=== PATIENT | female | born 1975 | race Caucasian/White ===

== ENCOUNTER 2021-08-09 07:56 | Outpatient (CLI) | payer OTHER | END 2021-08-09 07:59 | disposition home or self-care (01) | LOC: SONOGRAMA 07:56 | PROVIDERS: ATTEND Pathology Anatomic Pathology & Clinical Pathology | DX: E07.89 Other specified disorders of thyroid (principal); E04.1 Nontoxic single thyroid nodule ==

== ENCOUNTER 2021-08-24 09:41 | Inpatient (IN) | payer OTHER ==
[~2021-08-24] VITALS: Ht 167.6 cm; Wt 49.0 kg
[2021-08-24] MEDS ORDERED: B12 ACTIVE1000 MCG SL (09:48)
[2021-08-30] MEDS ORDERED: INTEGRA PLUS C1 EACH PO (14:24)
[2021-08-30] MEDS ORDERED: FOLIC ACID1 MG PO (14:25)
== END 2021-08-30 19:07 | disposition home or self-care (01) | DRG 812 ==
LOC: ER 09:41 → MEDI 12:52
PROVIDERS: ADMIT Internal Medicine; ATTEND Internal Medicine
PROC: 30233N1 Transfusion of Nonautologous Red Blood Cells into Peripheral Vein, Percutaneous Approach (ICD-10-PCS; principal; 2021-08-24)
PROC: BW21YZZ Computerized Tomography (CT Scan) of Abdomen and Pelvis using Other Contrast (ICD-10-PCS; 2021-08-24)
PROC: CB2YYZZ Tomographic (Tomo) Nuclear Medicine Imaging of Respiratory System using Other Radionuclide (ICD-10-PCS; 2021-08-25)
DX: D64.9 Anemia, unspecified (principal); D61.818 Other pancytopenia; R16.1 Splenomegaly, not elsewhere classified

== ENCOUNTER 2021-10-13 15:05 | Outpatient (CLI) | payer OTHER ==
[~2021-10-13 15:05] MED LIST: B12 ACTIVE1000 MCG SL; FOLIC ACID1 MG PO; INTEGRA PLUS C1 EACH PO
== END 2021-10-13 15:18 | disposition home or self-care (01) ==
LOC: LAB 15:05
PROVIDERS: ATTEND Internal Medicine Hematology & Oncology
DX: D50.8 Other iron deficiency anemias (principal); R79.89 Other specified abnormal findings of blood chemistry; I10 Essential (primary) hypertension; R74.02 Elevation of levels of lactic acid dehydrogenase [LDH]; K76.89 Other specified diseases of liver; D51.8 Other vitamin B12 deficiency anemias; B27.89 Other infectious mononucleosis with other complication; C56.9 Malignant neoplasm of unspecified ovary; R97.8 Other abnormal tumor markers; R97.1 Elevated cancer antigen 125 [CA 125]; R97.0 Elevated carcinoembryonic antigen [CEA]; Z80.42 Family history of malignant neoplasm of prostate; Z80.3 Family history of malignant neoplasm of breast; D69.59 Other secondary thrombocytopenia; D69.3 Immune thrombocytopenic purpura; G43.009 Migraine without aura, not intractable, without status migrainosus; D51.1 Vitamin B12 deficiency anemia due to selective vitamin B12 malabsorption with proteinuria; K31.83 Achlorhydria; D64.89 Other specified anemias; E03.8 Other specified hypothyroidism; D24.1 Benign neoplasm of right breast; D24.2 Benign neoplasm of left breast

== ENCOUNTER 2021-10-26 08:01 | Outpatient (CLI) | payer OTHER | END 2021-10-26 08:20 | disposition home or self-care (01) | LOC: TOM 08:01 | PROVIDERS: ATTEND Internal Medicine Hematology & Oncology | DX: Z80.42 Family history of malignant neoplasm of prostate (principal); Z80.3 Family history of malignant neoplasm of breast; D69.59 Other secondary thrombocytopenia; D69.3 Immune thrombocytopenic purpura; G43.009 Migraine without aura, not intractable, without status migrainosus; D51.1 Vitamin B12 deficiency anemia due to selective vitamin B12 malabsorption with proteinuria; K31.83 Achlorhydria; D64.9 Anemia, unspecified; E03.8 Other specified hypothyroidism; D24.1 Benign neoplasm of right breast; D24.2 Benign neoplasm of left breast; R16.1 Splenomegaly, not elsewhere classified ==

== ENCOUNTER 2022-01-26 08:28 | Outpatient (CLI) | payer OTHER ==
[2022-01-26] MEDS ORDERED: FUSION CAPSULE1 EACH (13:53)
== END 2022-01-26 08:32 | disposition home or self-care (01) ==
LOC: SONOGRAMA 08:28
PROVIDERS: ATTEND Pathology Anatomic Pathology & Clinical Pathology
DX: E04.1 Nontoxic single thyroid nodule (principal)

== ENCOUNTER 2022-01-26 10:00 | Outpatient (CLI) | payer OTHER ==
[2022-01-26] MEDS ORDERED: FUSION CAPSULE1 EACH (13:53)
== END 2022-01-26 10:05 | disposition home or self-care (01) ==
LOC: LAB 10:00
PROVIDERS: ATTEND Internal Medicine Hematology & Oncology
DX: D50.8 Other iron deficiency anemias (principal)

== ENCOUNTER 2022-01-26 13:27 | Inpatient (IN) | payer OTHER ==
[~2022-01-26] VITALS: Ht 167.6 cm; Wt 49.9 kg
[2022-01-26] MEDS ORDERED: FUSION CAPSULE1 EACH (13:53)
[2022-01-30] MEDS ORDERED: FUSION PLUS CA1 EACH PO (17:04)
[2022-01-30] MEDS ORDERED: PYRIDOXINE HCL100 MG PO (17:04)
[2022-01-30] MEDS ORDERED: FOLIC ACID1 MG PO (17:04)
[2022-01-30] MEDS ORDERED: Neurin-Sl Tablet Sl SL (17:04)
== END 2022-01-30 17:27 | disposition home or self-care (01) | DRG 812 ==
LOC: ER 13:27 → MEDI 22:52
PROVIDERS: ADMIT Internal Medicine; ATTEND Internal Medicine
PROC: 3E0F7SF Introduction of Other Gas into Respiratory Tract, Via Natural or Artificial Opening (ICD-10-PCS; 2022-01-26)
PROC: 30233N1 Transfusion of Nonautologous Red Blood Cells into Peripheral Vein, Percutaneous Approach (ICD-10-PCS; principal; 2022-01-27)
DX: D50.0 Iron deficiency anemia secondary to blood loss (chronic) (principal); C91.10 Chronic lymphocytic leukemia of B-cell type not having achieved remission; D51.0 Vitamin B12 deficiency anemia due to intrinsic factor deficiency; R16.2 Hepatomegaly with splenomegaly, not elsewhere classified; N93.8 Other specified abnormal uterine and vaginal bleeding; Z20.822 Contact with and (suspected) exposure to COVID-19

== ENCOUNTER 2022-02-01 10:00 | Emergency (ER) | payer OTHER ==
[~2022-02-01] VITALS: Ht 167.6 cm; Wt 49.9 kg
[~2022-02-01 10:00] MED LIST changes: +FUSION CAPSULE1 EACH; +FUSION PLUS CA1 EACH PO; +Neurin-Sl Tablet Sl SL; +PYRIDOXINE HCL100 MG PO
== END 2022-02-01 13:56 | disposition home or self-care (01) ==
LOC: ER 10:00
DX: R10.84 Generalized abdominal pain (principal); R16.2 Hepatomegaly with splenomegaly, not elsewhere classified

== ENCOUNTER 2022-04-03 06:38 | Outpatient (CLI) | payer OTHER | END 2022-04-03 07:06 | disposition home or self-care (01) | LOC: LAB 06:38 | PROVIDERS: ATTEND Internal Medicine Hematology & Oncology | DX: D50.8 Other iron deficiency anemias (principal); R79.9 Abnormal finding of blood chemistry, unspecified; I10 Essential (primary) hypertension; R74.02 Elevation of levels of lactic acid dehydrogenase [LDH]; K76.89 Other specified diseases of liver; Z80.42 Family history of malignant neoplasm of prostate; Z80.3 Family history of malignant neoplasm of breast; C85.17 Unspecified B-cell lymphoma, spleen; D69.59 Other secondary thrombocytopenia; D69.3 Immune thrombocytopenic purpura; G43.009 Migraine without aura, not intractable, without status migrainosus; D51.1 Vitamin B12 deficiency anemia due to selective vitamin B12 malabsorption with proteinuria; K31.83 Achlorhydria; D64.9 Anemia, unspecified; E03.8 Other specified hypothyroidism; D24.1 Benign neoplasm of right breast; D24.2 Benign neoplasm of left breast ==

== ENCOUNTER 2022-05-01 07:12 | Outpatient (CLI) | payer OTHER | END 2022-05-01 07:30 | disposition home or self-care (01) | LOC: LAB 07:12 | PROVIDERS: ATTEND Obstetrics & Gynecology | DX: E03.9 Hypothyroidism, unspecified (principal); I10 Essential (primary) hypertension; E78.00 Pure hypercholesterolemia, unspecified; N39.0 Urinary tract infection, site not specified; E55.9 Vitamin D deficiency, unspecified; R79.9 Abnormal finding of blood chemistry, unspecified; R79.89 Other specified abnormal findings of blood chemistry; Z00.00 Encounter for general adult medical examination without abnormal findings; Z11.4 Encounter for screening for human immunodeficiency virus [HIV]; Z12.11 Encounter for screening for malignant neoplasm of colon; Z21 Asymptomatic human immunodeficiency virus [HIV] infection status ==

== ENCOUNTER 2022-05-07 12:32 | Inpatient (IN) | payer OTHER ==
[~2022-05-07] VITALS: Ht 152.4 cm; Wt 49.9 kg
== END 2022-05-09 13:21 | disposition home or self-care (01) | DRG 812 ==
LOC: ER 12:32 → MEDJ 19:16
PROVIDERS: ADMIT Internal Medicine; ATTEND Internal Medicine
PROC: 30233N1 Transfusion of Nonautologous Red Blood Cells into Peripheral Vein, Percutaneous Approach (ICD-10-PCS; principal; 2022-05-08)
DX: D64.9 Anemia, unspecified (principal); D50.0 Iron deficiency anemia secondary to blood loss (chronic); R16.1 Splenomegaly, not elsewhere classified; Z20.822 Contact with and (suspected) exposure to COVID-19; D51.0 Vitamin B12 deficiency anemia due to intrinsic factor deficiency

== ENCOUNTER 2022-05-17 07:15 | Inpatient (IN) | payer OTHER ==
[~2022-05-17] VITALS: Ht 167.6 cm; Wt 49.9 kg
[2022-05-24] MEDS ORDERED: GABAPENTIN300 MG PO (07:06)
[2022-05-24] MEDS ORDERED: OXYC1TAB9 PO (07:07)
[2022-05-25] MEDS ORDERED: SIMETHICONE125 M1 PO (07:24)
[2022-05-25] MEDS ORDERED: TRAMADOL HCL50 MG PO (07:24)
[2022-05-25] MEDS ORDERED: NEURONTIN600 MG PO (07:24)
[2022-05-25] MEDS ORDERED: POLY119PG PO (07:24)
== END 2022-05-25 10:12 | disposition home or self-care (01) | DRG 743 ==
LOC: OB/GYN 05-22 04:45 → O/R 05-22 04:45 → SURG 05-22 07:00 → OB/GYN 05-22 10:11
PROVIDERS: ADMIT Obstetrics & Gynecology; ATTEND Obstetrics & Gynecology
PROC: 0UT70ZZ Resection of Bilateral Fallopian Tubes, Open Approach (ICD-10-PCS; 2022-05-22)
PROC: 0UT90ZZ Resection of Uterus, Open Approach (ICD-10-PCS; principal; 2022-05-22 07:00)
DX: D25.9 Leiomyoma of uterus, unspecified (principal); N72 Inflammatory disease of cervix uteri; N80.0 Endometriosis of uterus; Z20.822 Contact with and (suspected) exposure to COVID-19

== ENCOUNTER 2022-06-12 08:25 | Inpatient (IN) | payer OTHER ==
[~2022-06-12] VITALS: Ht 167.6 cm; Wt 46.3 kg
[~2022-06-12 08:25] MED LIST changes: +GABAPENTIN300 MG PO; +NEURONTIN600 MG PO; +OXYC1TAB9 PO; +POLY119PG PO; +SIMETHICONE125 M1 PO; +TRAMADOL HCL50 MG PO
[2022-06-12] MEDS ORDERED: FUSION PLUS CA1 EACH PO ×2 (08:40→08:43)
[2022-06-12] MEDS ORDERED: HEALTHY HEART1 EACH PO (08:41)
--- NOTE | 2022-06-12 08:44 | NUR ---
SE RECIBE PACIENTE ALERTA Y ORIENTADO X3 PTE REFIERE QUE TIENE [facility] Y PADECE DE ANEMIA Y LE QUITARON LA MATRIZ. SE DAYSI EN LA JÚNIOR DE ESPERA POR EVALUACION MEDICA.
--- NOTE | 2022-06-12 09:26 | NUR ---
FEMINA DE [address] CABRERA SE EJECUTA ORDEN EN ADAMS TOTALIDA SE DAYSI EN JÚNIOR EN ESPERA DE RESULTADO. Y SE EDEUCA A PACIENTE Y PACIENTE REFIERE ENTENDER.
--- NOTE | 2022-06-12 10:54 | NUR ---
SE LLAMA A BANCO DE SID DEL [facility] PARA REQUISAR UNIDADES DE SID Y VERIFICA SI PTE TIENE REORD PREVIO. REFIERE QUE PTE YA TIENE RECORD.SE LE ORIENTA A PTE SOBRE TRATAMIENTO A SEGUIR, KENDRICK REFIERE ENTENDER. SE COLECTA MUESTRAS Y SE CANALIZA X2 HERNESTO ORDEN MEDICA. LLAMA A DR.MUNOZ CARPENTER Y EL ORDENA TRANSFUNDIR 4 UNIDADES DE PRBC COMPLETAS. SE EJECUTA ORDEN. SE ENVIA TUBOS PILOTOS A BANCO DE SID.
--- NOTE | 2022-06-12 17:04 | NUR ---
SE RECIBE PTE FEMENINA ALERTA Y ORIENTADA X3,SE COMIENZA PRIMERA UNIDAD DE PRBC,LA CUAL PTE TOLERA Y NO PRESENTA REACCION ADVERSA,SE MANTIENE EN VIGILANCIA CROW POR CAMBIOS.
== END 2022-06-15 21:03 | disposition home or self-care (01) | DRG 812 ==
LOC: ER 08:25 → MEDI 18:46
PROVIDERS: ADMIT Internal Medicine; ATTEND Internal Medicine
PROC: 30233N1 Transfusion of Nonautologous Red Blood Cells into Peripheral Vein, Percutaneous Approach (ICD-10-PCS; principal; 2022-06-13)
DX: D64.9 Anemia, unspecified (principal); C91.10 Chronic lymphocytic leukemia of B-cell type not having achieved remission; N93.9 Abnormal uterine and vaginal bleeding, unspecified; D51.0 Vitamin B12 deficiency anemia due to intrinsic factor deficiency; Z20.822 Contact with and (suspected) exposure to COVID-19

== ENCOUNTER 2022-06-26 11:07 | Outpatient (CLI) | payer OTHER ==
[~2022-06-26 11:07] MED LIST changes: +HEALTHY HEART1 EACH PO
== END 2022-06-26 11:13 | disposition home or self-care (01) ==
LOC: LAB 11:07
PROVIDERS: ATTEND Obstetrics & Gynecology
DX: D64.9 Anemia, unspecified (principal)

== ENCOUNTER 2022-08-12 07:17 | Outpatient (CLI) | payer OTHER | END 2022-08-12 07:18 | disposition home or self-care (01) | LOC: LAB 07:17 | PROVIDERS: ATTEND Internal Medicine | DX: R16.2 Hepatomegaly with splenomegaly, not elsewhere classified (principal) ==

== ENCOUNTER 2022-09-04 08:29 | Inpatient (IN) | payer OTHER ==
[~2022-09-04] VITALS: Ht 167.6 cm; Wt 47.6 kg
--- NOTE | 2022-09-04 08:45 | NUR ---
PACIENTE ALERTA Y ORIENTADA X3, REFIERE QUE SE REALIZO LABORATORIOS A FINALES DE NOVIEMBRE DONDE INDICABA QUE TENIA 8 DE HEMOGLOBINA. PTE SE ENCUENTRA TOMANDO TERRY. PTE INDICA TENER DOLOR DE JENNIFER Y SENTIR QUE LE ESTA BAJANDO LA HEMOGLOBINA. SE MONITOREAN VS Y SE UBICA EN JÚNIOR DE ESPERA
--- NOTE | 2022-09-04 10:26 | NUR ---
FEMINA ALERTA Y ORIENTADA X3 EVALUADA POR DRA HEADLEY QUIEN ORDENA [place] MEDICO. SE EDUCA A PTE Y SE COLECTAN MUESTRAS DE SID BAJO MEDIDAS ASEPTICAS.
[2022-09-05] MEDS ORDERED: ABANEU-SL TABL1 EACH (08:46)
[2022-09-07] MEDS ORDERED: FOLIC ACID1 MG PO (12:19)
[2022-09-07] MEDS ORDERED: INTEGRA PLUS C1 EACH PO (12:19)
[2022-09-07] MEDS ORDERED: B12 ACTIVE1000 MCG SL (12:20)
[2022-09-07] MEDS ORDERED: PYRIDOXINE HCL100 MG PO (12:20)
== END 2022-09-07 15:14 | disposition home or self-care (01) | DRG 812 ==
LOC: ER 08:29 → MEDJ 15:12 → SEC-K 15:12 → MEDJ 15:37
PROVIDERS: ADMIT Internal Medicine; ATTEND Internal Medicine
DX: D64.9 Anemia, unspecified (principal); C91.10 Chronic lymphocytic leukemia of B-cell type not having achieved remission; R16.0 Hepatomegaly, not elsewhere classified; D63.0 Anemia in neoplastic disease; E03.9 Hypothyroidism, unspecified; Z20.822 Contact with and (suspected) exposure to COVID-19

== ENCOUNTER 2022-11-19 13:17 | Inpatient (IN) | payer OTHER ==
[~2022-11-19] VITALS: Ht 167.6 cm; Wt 48.5 kg
[~2022-11-19 13:17] MED LIST changes: +ABANEU-SL TABL1 EACH
--- NOTE | 2022-11-19 13:47 | NUR ---
SE RECIBE PACIENTE ALERTA Y ORIENTADA X3 QUIEN VERBALIZA QUE TIENE HGB BAJA. PACIENTE NO PRESENTA LABORATORIO AL MOMENTO. SE MONITOREAN S/V Y SE UBICA PACIENTE.
[2022-11-19] MEDS ORDERED: FOLIC ACID1 MG PO (13:50)
--- NOTE | 2022-11-19 17:48 | NUR ---
PTE ES EVALUADO POR DR CABRERA. SE ORIENTA A PTE Y VERBALIZA QUE ACCEPTA. PTE SE CANALIZA EN BRAZOO ARUNA Y TIENE 2 VENOPUNCION CON ANGIO 20 YA QUE PTE VIENE PARA TRANSFUCION. SE UBICA EN CAMA 11. SE EJECUTA ORDEN MEDICA EN ADAMS TOTALIDAD
== END 2022-12-18 14:57 | disposition home or self-care (01) | DRG 841 ==
LOC: ER 13:17 → MEDI 19:40 → MEDJ 19:40
PROVIDERS: ADMIT Internal Medicine; ATTEND Internal Medicine
PROC: 30233N1 Transfusion of Nonautologous Red Blood Cells into Peripheral Vein, Percutaneous Approach (ICD-10-PCS; 2022-11-20)
PROC: BW40ZZZ Ultrasonography of Abdomen (ICD-10-PCS; 2022-11-23)
PROC: BW21YZZ Computerized Tomography (CT Scan) of Abdomen and Pelvis using Other Contrast (ICD-10-PCS; 2022-11-24)
PROC: 02HV33Z Insertion of Infusion Device into Superior Vena Cava, Percutaneous Approach (ICD-10-PCS; 2022-12-06)
PROC: BB24Y0Z Computerized Tomography (CT Scan) of Bilateral Lungs using Other Contrast, Unenhanced and Enhanced (ICD-10-PCS; 2022-12-07)
PROC: 0W9B30Z Drainage of Left Pleural Cavity with Drainage Device, Percutaneous Approach (ICD-10-PCS; principal; 2022-12-11)
DX: C91.10 Chronic lymphocytic leukemia of B-cell type not having achieved remission (principal); D61.818 Other pancytopenia; J90 Pleural effusion, not elsewhere classified; D63.0 Anemia in neoplastic disease; D51.0 Vitamin B12 deficiency anemia due to intrinsic factor deficiency; D73.2 Chronic congestive splenomegaly; R16.0 Hepatomegaly, not elsewhere classified; D53.0 Protein deficiency anemia; R14.0 Abdominal distension (gaseous); G89.3 Neoplasm related pain (acute) (chronic)

== ENCOUNTER 2023-01-27 07:31 | Outpatient (CLI) | payer OTHER | END 2023-01-27 07:32 | disposition home or self-care (01) | LOC: LAB 07:31 | PROVIDERS: ATTEND Internal Medicine | DX: R16.2 Hepatomegaly with splenomegaly, not elsewhere classified (principal); D64.9 Anemia, unspecified; R18.8 Other ascites; D69.6 Thrombocytopenia, unspecified; E11.9 Type 2 diabetes mellitus without complications; E03.9 Hypothyroidism, unspecified; E78.2 Mixed hyperlipidemia; N39.0 Urinary tract infection, site not specified; E55.9 Vitamin D deficiency, unspecified; E03.8 Other specified hypothyroidism; Z90.710 Acquired absence of both cervix and uterus ==

== ENCOUNTER → 2023-04-28 07:08 | Outpatient (CLI) | payer OTHER | END | disposition home or self-care (01) | LOC: LAB 07:08 | PROVIDERS: ATTEND Internal Medicine Hematology & Oncology | DX: D50.8 Other iron deficiency anemias (principal); R79.9 Abnormal finding of blood chemistry, unspecified; I10 Essential (primary) hypertension; R74.02 Elevation of levels of lactic acid dehydrogenase [LDH]; K76.89 Other specified diseases of liver; Z80.42 Family history of malignant neoplasm of prostate; Z80.3 Family history of malignant neoplasm of breast; C85.17 Unspecified B-cell lymphoma, spleen; D69.59 Other secondary thrombocytopenia; D69.3 Immune thrombocytopenic purpura; G43.009 Migraine without aura, not intractable, without status migrainosus; D51.1 Vitamin B12 deficiency anemia due to selective vitamin B12 malabsorption with proteinuria; K31.83 Achlorhydria; D64.9 Anemia, unspecified; E03.8 Other specified hypothyroidism; D24.1 Benign neoplasm of right breast; D24.2 Benign neoplasm of left breast ==

== ENCOUNTER 2023-05-30 07:26 | Outpatient (CLI) | payer OTHER | END 2023-05-30 07:37 | disposition home or self-care (01) | LOC: TOM 07:26 | PROVIDERS: ATTEND Internal Medicine Hematology & Oncology | DX: D73.2 Chronic congestive splenomegaly (principal); Z80.42 Family history of malignant neoplasm of prostate; Z80.3 Family history of malignant neoplasm of breast; D69.59 Other secondary thrombocytopenia; D69.3 Immune thrombocytopenic purpura; G43.009 Migraine without aura, not intractable, without status migrainosus; D51.1 Vitamin B12 deficiency anemia due to selective vitamin B12 malabsorption with proteinuria; K31.83 Achlorhydria; D64.9 Anemia, unspecified; E03.8 Other specified hypothyroidism; D24.1 Benign neoplasm of right breast; D24.2 Benign neoplasm of left breast; C85.17 Unspecified B-cell lymphoma, spleen ==

== ENCOUNTER → 2023-07-28 09:24 | Outpatient (CLI) | payer OTHER ==
[2023-07-28 10:05] LABS: HEMATOCRIT 28.1 % (36.0-45.00); MEAN CELL VOLUME 92.5 fL (80.00-100.00); MEAN CORPUSCULAR HGB CONC 34.4 g/dl (32.0-36.0); RED BLOOD COUNT 3.04 M/uL (4.00-6.00); RED CELL DISTRIBUTION WIDTH 14.1 % (11.5-14.5)
[2023-07-28 10:06] LABS: MEAN CORPUSCULAR HEMOGLOBIN 31.9 pg (27.00-32.0)
[2023-07-28 10:07] LABS: HEMOGLOBIN 9.7 g/dL (12.0-15.00); PLATELET COUNT 114 K/uL (150-450)
== END | disposition home or self-care (01) ==
LOC: LAB 09:24
DX: Z00.00 Encounter for general adult medical examination without abnormal findings (principal)

== ENCOUNTER 2023-08-04 07:48 | Inpatient (IN) | payer OTHER ==
[~2023-08-04] VITALS: Ht 167.6 cm; Wt 53.1 kg
[2023-08-04] MEDS ORDERED: FOLIC ACID0.8 M1 (07:54)
[2023-08-04] MEDS ORDERED: LYRICA100 MG PO (07:54)
[2023-08-04] MEDS ORDERED: FUSION PLUS CA1 EACH PO (07:55)
[2023-08-04] MEDS ORDERED: SUMATRIPTAN-NA1 EACH PO (07:55)
[2023-08-04 09:36] LABS: URINE APPEARANCE Cloudy; URINE BILIRRUBIN Small (NEGATIVE); URINE BLOOD Negative; URINE COLOR Dark Yellow; URINE GLUCOSE Negative (NEGATIVE); URINE LEUKOCYTE Trace; URINE NITRATE Negative
[2023-08-04 09:39] LABS: URINE EPITHELIAL CELLS 28.1 uL (0.0-38.8); URINE RBC 21.8 uL (0.0-20.8)
[2023-08-04 09:48] LABS: URINE CRYSTALS MANY /HPF; URINE PROTEIN 100 (NEGATIVE)
[2023-08-04 11:08] LABS: INR 1.2; PARTIAL THROMBOPLASTIN TIME 24.9 SECONDS (22.0-34.0); PROTHROMBIN TIME 12.4 SECONDS (9.0-11.5)
[2023-08-04 11:13] LABS: MEAN CELL VOLUME 94.1 fL (80.00-100.00); MEAN CORPUSCULAR HGB CONC 33.6 g/dl (32.0-36.0); RED BLOOD COUNT 2.35 M/uL (4.00-6.00); RED CELL DISTRIBUTION WIDTH 14.7 % (11.5-14.5)
[2023-08-04 11:26] LABS: ALBUMIN 2.5 gm/dL (3.4-5.0); BILIRUBIN TOTAL 0.63 mg/dL (0.3-1.2); CALCIUM 9.1 mg/dL (8.5-10.1); CREATININE SERUM 0.68 mg/dL (0.55-1.02); GFR 92.35; POTASSIUM 4.59 mEq/L (3.5-5.1); TOTAL PROTEIN 6.5 gm/dL (6.4-8.2)
[2023-08-04 11:36] LABS: MEAN CORPUSCULAR HEMOGLOBIN 31.9 pg (27.00-32.0)
[2023-08-04 11:41] LABS: HEMATOCRIT 22.2 % (36.0-45.00); HEMOGLOBIN 7.5 g/dL (12.0-15.00)
[2023-08-04 12:47] LABS: PLATELET COUNT 84 K/uL (150-450)
[2023-08-05 10:30] LABS: MEAN CELL VOLUME 88.9 fL (80.00-100.00); MEAN CORPUSCULAR HGB CONC 35.7 g/dl (32.0-36.0); RED BLOOD COUNT 2.58 M/uL (4.00-6.00); RED CELL DISTRIBUTION WIDTH 14.4 % (11.5-14.5)
[2023-08-05 10:31] LABS: MEAN CORPUSCULAR HEMOGLOBIN 31.7 pg (27.00-32.0)
[2023-08-05 10:32] LABS: HEMATOCRIT 22.9 % (36.0-45.00); HEMOGLOBIN 8.2 g/dL (12.0-15.00); PLATELET COUNT 83 K/uL (150-450)
[2023-08-05 10:40] LABS: ALBUMIN 2.4 gm/dL (3.4-5.0); BILIRUBIN TOTAL 0.75 mg/dL (0.3-1.2); CALCIUM 8.4 mg/dL (8.5-10.1); CREATININE SERUM 0.62 mg/dL (0.55-1.02); GFR 102.74; GLOBULINA 3.3 G/DL (2.4-3.5); MAGNESIUM 1.8 mg/dL (1.8-2.4); PHOSPHOROUS 3.2 mg/dL (2.5-4.9); POTASSIUM 3.72 mEq/L (3.5-5.1); TOTAL PROTEIN 5.7 gm/dL (6.4-8.2)
[2023-08-05 10:57] LABS: MANUAL PLATELET COUNT 170
[2023-08-05 11:12] LABS: C-REACTIVE PROTEIN 26.1 MG/DL (0.00-0.29)
[2023-08-05 20:05] LABS: MEAN CELL VOLUME 89.8 fL (80.00-100.00); MEAN CORPUSCULAR HGB CONC 34.2 g/dl (32.0-36.0); RED BLOOD COUNT 3.03 M/uL (4.00-6.00); RED CELL DISTRIBUTION WIDTH 14.6 % (11.5-14.5)
[2023-08-05 21:01] LABS: PLATELET COUNT 87 K/uL (150-450)
[2023-08-05 21:04] LABS: HEMATOCRIT 27.2 % (36.0-45.00); HEMOGLOBIN 9.3 g/dL (12.0-15.00); MEAN CORPUSCULAR HEMOGLOBIN 30.6 pg (27.00-32.0)
[2023-08-06 12:08] LABS: HEMOGLOBIN 10.4 g/dL (12.0-15.00); MEAN CELL VOLUME 88.1 fL (80.00-100.00); MEAN CORPUSCULAR HEMOGLOBIN 29.5 pg (27.00-32.0); MEAN CORPUSCULAR HGB CONC 33.4 g/dl (32.0-36.0); RED BLOOD COUNT 3.51 M/uL (4.00-6.00)
[2023-08-06 12:17] LABS: PLATELET COUNT 71 K/uL (150-450)
[2023-08-06 13:07] LABS: PLATELET ESTIMATE DECREASED (NORMAL)
[2023-08-08 08:00] LABS: HEMATOCRIT 28.3 % (36.0-45.00); HEMOGLOBIN 9.8 g/dL (12.0-15.00); MEAN CELL VOLUME 87.8 fL (80.00-100.00); MEAN CORPUSCULAR HEMOGLOBIN 30.4 pg (27.00-32.0); MEAN CORPUSCULAR HGB CONC 34.7 g/dl (32.0-36.0); RED BLOOD COUNT 3.22 M/uL (4.00-6.00); RED CELL DISTRIBUTION WIDTH 16.2 % (11.5-14.5)
[2023-08-08 08:04] LABS: PLATELET COUNT 61 K/uL (150-450)
[2023-08-08 08:33] LABS: MYCOPLASMA PNEUMONIAE IGM NON REACTIVE (NO REACTIVE)
[2023-08-08 09:37] LABS: PLATELET ESTIMATE DECREASED (NORMAL)
[2023-08-10 06:50] LABS: HEMATOCRIT 26.6 % (36.0-45.00); MEAN CELL VOLUME 88.6 fL (80.00-100.00); MEAN CORPUSCULAR HGB CONC 33.9 g/dl (32.0-36.0)
[2023-08-10 07:03] LABS: BILIRUBIN TOTAL 0.62 mg/dL (0.3-1.2); CALCIUM 7.8 mg/dL (8.5-10.1); CREATININE SERUM 0.43 mg/dL (0.55-1.02); GFR 156.72; GLOBULINA 2.5 G/DL (2.4-3.5); POTASSIUM 3.6 mEq/L (3.5-5.1); TOTAL PROTEIN 4.5 gm/dL (6.4-8.2)
[2023-08-10 07:19] LABS: PLATELET COUNT 49 K/uL (150-450)
[2023-08-11 14:25] LABS: ALBUMIN 2.1 gm/dL (3.4-5.0); BILIRUBIN TOTAL 0.93 mg/dL (0.3-1.2); CALCIUM 8.3 mg/dL (8.5-10.1); CREATININE SERUM 0.37 mg/dL (0.55-1.02); GFR 186.4; GLOBULINA 2.9 G/DL (2.4-3.5); POTASSIUM 4.14 mEq/L (3.5-5.1)
[2023-08-12 07:34] LABS: ALBUMIN 1.9 gm/dL (3.4-5.0); BILIRUBIN TOTAL 0.51 mg/dL (0.3-1.2); CALCIUM 7.7 mg/dL (8.5-10.1); CREATININE SERUM 0.4 mg/dL (0.55-1.02); GFR 170.36; GLOBULINA 2.5 G/DL (2.4-3.5); POTASSIUM 3.72 mEq/L (3.5-5.1); TOTAL PROTEIN 4.4 gm/dL (6.4-8.2)
[2023-08-12 08:22] LABS: HEMATOCRIT 26.3 % (36.0-45.00); MEAN CELL VOLUME 88.2 fL (80.00-100.00); MEAN CORPUSCULAR HEMOGLOBIN 30.1 pg (27.00-32.0); MEAN CORPUSCULAR HGB CONC 34.2 g/dl (32.0-36.0); RED BLOOD COUNT 2.98 M/uL (4.00-6.00); RED CELL DISTRIBUTION WIDTH 16.2 % (11.5-14.5)
[2023-08-12 10:00] LABS: MANUAL PLATELET COUNT 58; PLATELET COUNT 41 K/uL (150-450)
== END 2023-08-12 13:05 | disposition home or self-care (01) | DRG 812 ==
LOC: ER 07:49 → MEDJ 15:42
PROVIDERS: Emergency Medicine; Internal Medicine Geriatric Medicine; Internal Medicine Hematology & Oncology; Internal Medicine Infectious Disease; ADMIT Internal Medicine; ATTEND Internal Medicine
PROC: BW21ZZZ Computerized Tomography (CT Scan) of Abdomen and Pelvis (ICD-10-PCS; principal; 2023-08-04)
DX: D64.9 Anemia, unspecified (principal); D61.818 Other pancytopenia; D69.6 Thrombocytopenia, unspecified; K59.00 Constipation, unspecified; R16.1 Splenomegaly, not elsewhere classified

== ENCOUNTER 2023-08-21 07:30 | Outpatient (CLI) | payer OTHER ==
[~2023-08-21 07:30] MED LIST changes: +FOLIC ACID0.8 M1; +LYRICA100 MG PO; +SUMATRIPTAN-NA1 EACH PO
[2023-08-21 09:18] LABS: HEMATOCRIT 39.3 % (36.0-45.00); HEMOGLOBIN 13.1 g/dL (12.0-15.00); MEAN CELL VOLUME 89.7 fL (80.00-100.00); MEAN CORPUSCULAR HGB CONC 33.4 g/dl (32.0-36.0); PLATELET COUNT 251 K/uL (150-450); RED BLOOD COUNT 4.38 M/uL (4.00-6.00)
[2023-08-21 09:35] LABS: INR 0.99; PROTHROMBIN TIME 10.4 SECONDS (9.0-11.5)
[2023-08-22 09:17] LABS: ALBUMIN 3.8 gm/dL (3.4-5.0); BILIRUBIN TOTAL 0.6 mg/dL (0.3-1.2); CALCIUM 9.3 mg/dL (8.5-10.1); CREATININE SERUM 0.55 mg/dL (0.55-1.02); GFR 117.97; GLOBULINA 2.9 G/DL (2.4-3.5); POTASSIUM 4.58 mEq/L (3.5-5.1); TOTAL PROTEIN 6.7 gm/dL (6.4-8.2)
== END 2023-08-21 07:31 | disposition home or self-care (01) ==
LOC: LAB 07:30
DX: R16.1 Splenomegaly, not elsewhere classified (principal)

== ENCOUNTER 2023-08-24 14:32 | Outpatient (CLI) | payer OTHER | END 2023-08-24 23:00 | disposition home or self-care (01) | LOC: EKG 14:32 | PROVIDERS: ATTEND Internal Medicine | DX: I10 Essential (primary) hypertension (principal) ==

== ENCOUNTER → 2023-10-26 06:16 | Outpatient (CLI) | payer OTHER ==
[2023-10-26 07:22] LABS: HEMOGLOBIN 15.2 g/dL (12.0-15.00); MEAN CELL VOLUME 90.2 fL (80.00-100.00); MEAN CORPUSCULAR HEMOGLOBIN 31.1 pg (27.00-32.0); MEAN CORPUSCULAR HGB CONC 34.5 g/dl (32.0-36.0); PLATELET COUNT 185 K/uL (150-450); RED BLOOD COUNT 4.88 M/uL (4.00-6.00)
[2023-10-26 09:15] LABS: % SATURACION 91.6 % (15-50); ALBUMIN 4.4 gm/dL (3.4-5.0); BILIRUBIN TOTAL 0.69 mg/dL (0.3-1.2); CALCIUM 9.5 mg/dL (8.5-10.1); CREATININE SERUM 0.76 mg/dL (0.55-1.02); GFR 81.22; GLOBULINA 3.1 G/DL (2.4-3.5); POTASSIUM 4.87 mEq/L (3.5-5.1); TOTAL PROTEIN 7.5 gm/dL (6.4-8.2)
[2023-10-26 09:17] LABS: FERRITIN 3591.2 NG/ML (8-252)
[2023-10-26 10:49] LABS: FOLIC ACID > 20.00 ng/ml (4.78-20)
[2023-10-26 11:08] LABS: MANUAL PLATELET COUNT 384
[2023-10-26 11:11] LABS: PLATELET ESTIMATE NORMAL (NORMAL)
== END | disposition home or self-care (01) ==
LOC: LAB 06:16
PROVIDERS: ATTEND Internal Medicine Hematology & Oncology
DX: D50.8 Other iron deficiency anemias (principal); C85.17 Unspecified B-cell lymphoma, spleen; Z80.3 Family history of malignant neoplasm of breast; D69.59 Other secondary thrombocytopenia; D69.3 Immune thrombocytopenic purpura; G43.009 Migraine without aura, not intractable, without status migrainosus; D51.1 Vitamin B12 deficiency anemia due to selective vitamin B12 malabsorption with proteinuria; K31.83 Achlorhydria; D64.9 Anemia, unspecified; E03.8 Other specified hypothyroidism; D24.1 Benign neoplasm of right breast; D24.2 Benign neoplasm of left breast; R79.9 Abnormal finding of blood chemistry, unspecified; I10 Essential (primary) hypertension; R74.02 Elevation of levels of lactic acid dehydrogenase [LDH]; K76.89 Other specified diseases of liver

== ENCOUNTER 2024-06-07 07:52 | Outpatient (CLI) | payer OTHER ==
[2024-06-07 09:03] LABS: HEMATOCRIT 38.6 % (36.0-45.00); HEMOGLOBIN 13.1 g/dL (12.0-15.00); MEAN CELL VOLUME 94.9 fL (80.00-100.00); MEAN CORPUSCULAR HEMOGLOBIN 32.1 pg (27.00-32.0); MEAN CORPUSCULAR HGB CONC 33.8 g/dl (32.0-36.0); PLATELET COUNT 340 K/uL (150-450); RED BLOOD COUNT 4.07 M/uL (4.00-6.00); RED CELL DISTRIBUTION WIDTH 13.4 % (11.5-14.5)
[2024-06-07 09:59] LABS: BILIRUBIN TOTAL 0.45 mg/dL (0.3-1.2); CALCIUM 9.5 mg/dL (8.5-10.1); CREATININE SERUM 0.53 mg/dL (0.55-1.02); GFR 122.61; POTASSIUM 4.14 mEq/L (3.5-5.1)
[2024-06-09 12:33] LABS: FOLIC ACID > 20.00 ng/ml (4.78-20); VITAMIN D3 25 HYDROXY 33.49 ng/ml (30-120)
[2024-06-09 12:59] LABS: MANUAL PLATELET COUNT 694; PLATELET ESTIMATE INCREASED (NORMAL)
== END 2024-06-07 08:09 | disposition home or self-care (01) ==
LOC: LAB 07:52
PROVIDERS: ATTEND Internal Medicine Hematology & Oncology
DX: D69.3 Immune thrombocytopenic purpura (principal); Z80.42 Family history of malignant neoplasm of prostate; Z80.3 Family history of malignant neoplasm of breast; C85.17 Unspecified B-cell lymphoma, spleen; D69.59 Other secondary thrombocytopenia; G43.009 Migraine without aura, not intractable, without status migrainosus; D51.1 Vitamin B12 deficiency anemia due to selective vitamin B12 malabsorption with proteinuria; K31.83 Achlorhydria; D64.9 Anemia, unspecified; E03.8 Other specified hypothyroidism; D24.1 Benign neoplasm of right breast; D24.2 Benign neoplasm of left breast; E55.9 Vitamin D deficiency, unspecified; R79.9 Abnormal finding of blood chemistry, unspecified; D50.8 Other iron deficiency anemias; R74.02 Elevation of levels of lactic acid dehydrogenase [LDH]; K76.89 Other specified diseases of liver; I10 Essential (primary) hypertension

== ENCOUNTER 2024-12-04 06:27 | Outpatient (CLI) | payer OTHER ==
[2024-12-04 08:04] LABS: HEMATOCRIT 40.1 % (36.0-45.00); HEMOGLOBIN 13.8 g/dL (12.0-15.00); MEAN CELL VOLUME 93.6 fL (80.00-100.00); MEAN CORPUSCULAR HEMOGLOBIN 32.1 pg (27.00-32.0); MEAN CORPUSCULAR HGB CONC 34.3 g/dl (32.0-36.0); PLATELET COUNT 264 K/uL (150-450); RED BLOOD COUNT 4.29 M/uL (4.00-6.00)
[2024-12-04 08:11] LABS: BILIRUBIN TOTAL 0.51 mg/dL (0.3-1.2); CALCIUM 9.3 mg/dL (8.5-10.1); CREATININE SERUM 0.63 mg/dL (0.55-1.02); GFR 100.44; POTASSIUM 4.34 mEq/L (3.5-5.1)
[2024-12-04 08:16] LABS: FERRITIN 1967.3 NG/ML (8-252)
[2024-12-04 09:29] LABS: MANUAL PLATELET COUNT 490; PLATELET ESTIMATE NORMAL (NORMAL)
[2024-12-04 12:30] LABS: FOLIC ACID > 20.00 ng/ml (4.78-20); VITAMIN D3 25 HYDROXY 38.08 ng/ml (30-120)
== END 2024-12-04 06:46 | disposition home or self-care (01) ==
LOC: LAB 06:27
PROVIDERS: ATTEND Internal Medicine Hematology & Oncology
DX: C85.17 Unspecified B-cell lymphoma, spleen (principal); D69.59 Other secondary thrombocytopenia; D69.3 Immune thrombocytopenic purpura; G43.009 Migraine without aura, not intractable, without status migrainosus; D51.1 Vitamin B12 deficiency anemia due to selective vitamin B12 malabsorption with proteinuria; K31.83 Achlorhydria; D64.9 Anemia, unspecified; E03.8 Other specified hypothyroidism; D24.1 Benign neoplasm of right breast; D24.2 Benign neoplasm of left breast; D50.8 Other iron deficiency anemias; I10 Essential (primary) hypertension; R74.02 Elevation of levels of lactic acid dehydrogenase [LDH]; K76.89 Other specified diseases of liver; R79.9 Abnormal finding of blood chemistry, unspecified; E55.9 Vitamin D deficiency, unspecified

== ENCOUNTER 2024-12-17 07:04 | Outpatient (CLI) | payer OTHER | END 2024-12-17 07:07 | disposition home or self-care (01) | LOC: TOM 07:04 | PROVIDERS: ATTEND Internal Medicine Hematology & Oncology | DX: Z80.3 Family history of malignant neoplasm of breast (principal); C85.17 Unspecified B-cell lymphoma, spleen; D69.59 Other secondary thrombocytopenia; D69.3 Immune thrombocytopenic purpura; G43.009 Migraine without aura, not intractable, without status migrainosus; D51.1 Vitamin B12 deficiency anemia due to selective vitamin B12 malabsorption with proteinuria; K31.83 Achlorhydria; D64.9 Anemia, unspecified; E03.8 Other specified hypothyroidism; D24.1 Benign neoplasm of right breast; D24.2 Benign neoplasm of left breast ==

== ENCOUNTER 2025-03-23 10:49 | Emergency (ER) | payer OTHER ==
[~2025-03-23] VITALS: Ht 167.6 cm; Wt 63.5 kg
[2025-03-23] MEDS ORDERED: MONTELUKAST SODIUM 10 MG TABLET PO ONE (12:45)
[2025-03-23] MEDS ORDERED: LEVALBUTEROL HCL 1.25 MG/3 ML SOLUTION IH ONE (12:45)
[2025-03-23] MEDS ORDERED: IPRATROPIUM BROMIDE 0.5 MG/2.5 ML AMPUL.NEB IH ONE (12:45)
[2025-03-23] MEDS ORDERED: CEFTRIAXONE SODIUM 1,000 MG VIAL IV ONE (12:45)
[2025-03-23] MEDS ORDERED: BENZONATATE 200 MG CAPSULE PO ONE (12:45)
[2025-03-23] MEDS ORDERED: FAMOtidine 10 MG/ML (4ML VIAL) IV ONE (12:45)
[2025-03-23] MEDS ORDERED: MAGNESIUM SULFATE IN WATER 2 GM/50 ML PIGGYBAG IV ONE (12:45)
[2025-03-23] MEDS ORDERED: METHYLPREDNISOLONE SOD SUCC 125 MG VIAL IV ONE (12:45)
[2025-03-23 14:46] LABS: BASO % 0.6 % (0.1-1.2); EOS # 1.61 (0.04-0.54); EOS % 9.1 % (0.7-7.0); HEMATOCRIT 43.6 % (34.1-44.9); HEMOGLOBIN 14.1 g/dL (11.2-15.7); LYMPH # 3.71 (1.18-3.74); LYMPH % 21.1 % (19.3-53.1); MEAN CORPUSCULAR HEMOGLOBIN 30.5 pg (25.6-32.2); MONO # 1.14 (0.24-0.82); MONO % 6.5 % (4.7-12.5); NEUT # 10.96 (1.56-6.13); NEUT % 62.3 % (34.0-71.1); PLATELET COUNT 343 K/uL (163-369); RED BLOOD COUNT 4.63 M/uL (3.93-5.22); RED CELL DISTRIBUTION WIDTH 13.2 % (11.6-14.4)
[2025-03-23 15:20] LABS: COVID-19 AG NEGATIVE (NEGATIVE)
[2025-03-23 15:24] LABS: INFLUENZA A AG NEGATIVE (NEGATIVE); INFLUENZA B AG NEGATIVE (NEGATIVE)
[2025-03-23] MEDS ORDERED: MEDROLPACK PO (15:45)
[2025-03-23] MEDS ORDERED: BENZONATATE200 M1 PO (15:45)
[2025-03-23] MEDS ORDERED: SINGULAIR10 MG PO (15:45)
[2025-03-23] MEDS ORDERED: AZITHROMYCIN500 MG PO (15:45)
[2025-03-23] MEDS ORDERED: LEVALBUTER0.63 MG/3 IH (15:45)
[2025-03-23] MEDS ORDERED: PEPCID AC20 MG PO (15:45)
== END 2025-03-23 15:54 | disposition home or self-care (01) ==
LOC: ER 12:39
PROVIDERS: General Practice
DX: J45.909 Unspecified asthma, uncomplicated (principal); Z20.822 Contact with and (suspected) exposure to COVID-19

== ENCOUNTER 2025-06-13 07:47 | Outpatient (CLI) | payer OTHER ==
[~2025-06-13 07:47] MED LIST changes: +AZITHROMYCIN500 MG PO; +BENZONATATE200 M1 PO; +LEVALBUTER0.63 MG/3 IH; +MEDROLPACK PO; +PEPCID AC20 MG PO; +SINGULAIR10 MG PO
[2025-06-13 09:37] LABS: BASO % 0.7 % (0.1-1.2); EOS # 0.66 (0.04-0.54); EOS % 6.1 % (0.7-7.0); LYMPH # 2.28 (1.18-3.74); LYMPH % 20.9 % (19.3-53.1); MEAN PLATELET VOLUME 12.60 fl (9.4-12.4); MONO # 0.70 (0.24-0.82); MONO % 6.4 % (4.7-12.5); NEUT # 7.15 (1.56-6.13); NEUT % 65.6 % (34.0-71.1); RED CELL DISTRIBUTION WIDTH 13.0 % (11.6-14.4)
[2025-06-13 10:22] LABS: % SATURACION 55.8 % (15-50); ALT/SGPT 37.0 U/L (12-78); AST/SGOT 19.0 U/L (15-37); BILIRUBIN TOTAL 0.44 mg/dL (0.3-1.2); BUN CREA RATIO 27.0 (7.0-25.0); CREATININE SERUM 0.6 mg/dL (0.55-1.02); FE 149.0 ug/dl (50-170); GFR 105.82; GLOBULINA 3.0 G/DL (2.4-3.5); GLUCOSE FASTING 93.0 mg/dL (65-100); LDH 124.0 U/L (84-246); OSMOLALITY SERUM 280.0 MOSM/KG (275-295)
[2025-06-15 12:39] LABS: FOLIC ACID 14.20 ng/ml (4.78-20); VITAMIN D3 25 HYDROXY 31.35 ng/ml (30-120)
== END 2025-06-13 08:13 | disposition home or self-care (01) ==
LOC: LAB 07:47
PROVIDERS: ATTEND Internal Medicine Hematology & Oncology
DX: C85.17 Unspecified B-cell lymphoma, spleen (principal); D69.59 Other secondary thrombocytopenia; D69.3 Immune thrombocytopenic purpura; G43.009 Migraine without aura, not intractable, without status migrainosus; D51.1 Vitamin B12 deficiency anemia due to selective vitamin B12 malabsorption with proteinuria; K31.83 Achlorhydria; D64.9 Anemia, unspecified; E03.8 Other specified hypothyroidism; D24.1 Benign neoplasm of right breast; D24.2 Benign neoplasm of left breast; Z80.42 Family history of malignant neoplasm of prostate; Z80.3 Family history of malignant neoplasm of breast; D50.8 Other iron deficiency anemias; R79.9 Abnormal finding of blood chemistry, unspecified; I10 Essential (primary) hypertension; R74.02 Elevation of levels of lactic acid dehydrogenase [LDH]; K76.89 Other specified diseases of liver; E55.9 Vitamin D deficiency, unspecified